=== PATIENT | male | born 1950 | race Caucasian/White ===

== ENCOUNTER 2017-05-07 20:43 | Emergency (ER) | payer OTHER ==
[~2017-05-07] VITALS: Ht 182.9 cm; Wt 72.6 kg
[2017-05-07 20:45] VITALS: BP 148/92
== END 2017-05-07 21:19 ==
LOC: ER 20:44
DX: R33.9 Retention of urine, unspecified (principal); N40.0 Benign prostatic hyperplasia without lower urinary tract symptoms
CPT/HCPCS: 51702; 99284; A4606; A6402; Z7610